=== PATIENT | female | born 1935 | race Caucasian/White ===

== ENCOUNTER 2021-10-25 11:01 | Inpatient (IN) | payer OTHER ==
[~2021-10-25] VITALS: Ht 157.5 cm; Wt 99.8 kg
[2021-10-25] MEDS ORDERED: LASIX20 MG (11:35)
[2021-10-25] MEDS ORDERED: FOSAMAX70 MG (11:35)
[2021-10-25] MEDS ORDERED: NORVASC10 MG (11:35)
[2021-10-25] MEDS ORDERED: LIPITOR20 MG (11:36)
[2021-10-25] MEDS ORDERED: ECOTRIN81 MG (11:36)
[2021-10-25] MEDS ORDERED: VITAMIN D310 MCG/11 (11:36)
== END 2021-10-27 07:51 | disposition designated cancer center or children's hospital (05) | DRG 282 ==
LOC: ER 11:01 → ICU-2 21:31 → SEC-K 21:31 → ICU-2 22:20
PROVIDERS: ADMIT Internal Medicine; ATTEND Internal Medicine
PROC: B24BZZZ Ultrasonography of Heart with Aorta (ICD-10-PCS; principal; 2021-10-26)
DX: I24.9 Acute ischemic heart disease, unspecified (principal); I21.4 Non-ST elevation (NSTEMI) myocardial infarction; R06.02 Shortness of breath; R74.8 Abnormal levels of other serum enzymes; I25.10 Atherosclerotic heart disease of native coronary artery without angina pectoris; M79.662 Pain in left lower leg; I10 Essential (primary) hypertension; E66.8 Other obesity